=== PATIENT | male | born 1995 | race Caucasian/White ===

== ENCOUNTER 2021-05-09 20:36 | Emergency (ER) | payer SELFPAY ==
[2021-05-10 17:46] LABS: SARS-CoV-2 PCR by NAA Not Detected (NotDetected)
== END 2021-05-09 21:35 | disposition home or self-care (01) ==
LOC: BURERS 20:36
DX: J02.9 Acute pharyngitis, unspecified (principal); R51.9 Headache, unspecified; Z20.822 Contact with and (suspected) exposure to COVID-19; F17.200 Nicotine dependence, unspecified, uncomplicated
CPT/HCPCS: 99406; U0003; U0005